=== PATIENT | female | born 1980 | race Caucasian/White ===

== ENCOUNTER 2017-10-17 11:11 | Outpatient (CLI) | payer BC ==
[~2017-10-17] VITALS: Ht 165.1 cm; Wt 94.1 kg
[2017-10-17 10:25] VITALS: TEMP 97.9
[2017-10-17] MEDS ORDERED: PRENATAL MVI PO (11:42)
[2017-10-17 11:45] VITALS: BP 155/99; PULSE 71
[2017-10-17 12:15] VITALS: BP 145/98; PULSE 71
[2017-10-17 12:44] LABS: HEMATOCRIT 40.5 % (37.0-47.0); HEMOGLOBIN 13.5 g/dl (12.5-16.0); MEAN CELL VOLUME 94 fl (80.0-100.0); MEAN CORPUSCULAR HEMOGLOBIN 31 pg (27.0-31.0); MEAN CORPUSCULAR HGB CONC 33 g/dl (33.0-37.0); MEAN PLATELET VOLUME 12.4 fl (7.4-10.4); PLATELET COUNT 151 K/mm3 (130-400); RED BLOOD COUNT 4.32 M/mm3 (4.10-5.30); REDCELL DISTRIBUTION WIDTH-CV 13.2 % (11.5-14.5)
[2017-10-17 12:45] VITALS: BP 155/86; PULSE 113
[2017-10-17 12:52] LABS: ALBUMIN 3.2 gm/dL (3.5-5.0); BILIRUBIN,TOTAL 0.3 mg/dL (0.0-1.0); CALCIUM 8.8 mg/dL (8.4-10.2); CREATININE, serum 0.88 mg/dL (0.52-1.25); POTASSIUM 3.3 mmol/L (3.4-5.0); TOTAL PROTEIN 6.9 gm/dL (6.4-8.2)
[2017-10-17 12:58] LABS: COLLECTION METHOD CLEAN CATCH
[2017-10-17 13:05] LABS: PH 6 (5-8); SQUAMOUS EPITHELIAL 0-2 /hpf; URINE APPEARANCE Clear; URINE BACTERIA None Seen /hpf; URINE BILIRUBIN Negative (NEGATIVE); URINE BLOOD Negative (NEGATIVE); URINE COLOR Straw; URINE GLUCOSE Negative (NEGATIVE); URINE KETONE Negative (NEGATIVE); URINE LEUKOCYTE ESTERASE Negative (NEGATIVE); URINE NITRATE Negative (NEGATIVE); URINE PROTEIN(semi-quant) Negative (NEGATIVE); URINE RBC 0-2 /hpf; URINE UROBILINOGEN Negative (NEGATIVE); URINE WBC 0-2 /hpf
[2017-10-17 13:15] VITALS: BP 145/85; PULSE 78
== END 2017-10-17 13:45 | disposition home or self-care (01) ==
LOC: LDRO 11:11
PROVIDERS: Obstetrics & Gynecology
DX: O32.1XX0 Maternal care for breech presentation, not applicable or unspecified (principal); Z3A.37 37 weeks gestation of pregnancy
CPT/HCPCS: J3105

== ENCOUNTER 2017-10-21 17:26 | Inpatient (IN) | payer BC ==
[~2017-10-21] VITALS: Ht 165.1 cm; Wt 95.5 kg
[2017-10-21] VITALS (24 sets, daily range): BP systolic 134–194; BP diastolic 70–99; PULSE 63–88; TEMP 97.3–98.4
[~2017-10-21 17:26] MED LIST: PRENATAL MVI PO
[2017-10-21 18:47] LABS: COLLECTION METHOD CLEAN CATCH
[2017-10-21 18:50] LABS: BASO % 0.2 % (0.0-2.0); EOS # 0.1 (0.0-0.7); EOS % 1.1 % (0-4.0); GRAN % 73.6 % (42.2-75.2); HEMATOCRIT 40.2 % (37.0-47.0); HEMOGLOBIN 13.7 g/dl (12.5-16.0); LYMPH # 1.8 (1.2-3.4); LYMPH % 14.7 % (20.0-51.0); MEAN CELL VOLUME 92 fl (80.0-100.0); MEAN CORPUSCULAR HEMOGLOBIN 31 pg (27.0-31.0); MEAN CORPUSCULAR HGB CONC 34 g/dl (33.0-37.0); MEAN PLATELET VOLUME 12.5 fl (7.4-10.4); MONO # 1.2 (0.1-0.6); MONO % 10.1 % (1.7-9.3); PLATELET COUNT 155 K/mm3 (130-400); RED BLOOD COUNT 4.37 M/mm3 (4.10-5.30); REDCELL DISTRIBUTION WIDTH-CV 13.1 % (11.5-14.5)
[2017-10-21 18:53] LABS: MUCOUS Present /lpf; PH 5 (5-8); SQUAMOUS EPITHELIAL None Seen /hpf; URINE APPEARANCE Clear; URINE BACTERIA None Seen /hpf; URINE BILIRUBIN Negative (NEGATIVE); URINE BLOOD Negative (NEGATIVE); URINE COLOR Straw; URINE GLUCOSE Negative (NEGATIVE); URINE KETONE Negative (NEGATIVE); URINE LEUKOCYTE ESTERASE Negative (NEGATIVE); URINE NITRATE Negative (NEGATIVE); URINE PROTEIN(semi-quant) Negative (NEGATIVE); URINE RBC 0-2 /hpf; URINE UROBILINOGEN Negative (NEGATIVE); URINE WBC 0-2 /hpf
[2017-10-21 18:58] LABS: ALBUMIN 3.3 gm/dL (3.5-5.0); BILIRUBIN,TOTAL 0.3 mg/dL (0.0-1.0); CALCIUM 9.6 mg/dL (8.4-10.2); CREATININE, serum 0.97 mg/dL (0.52-1.25); POTASSIUM 4.1 mmol/L (3.4-5.0); TOTAL PROTEIN 7.5 gm/dL (6.4-8.2)
[2017-10-22] VITALS (30 sets, daily range): BP systolic 108–154; BP diastolic 62–99; PULSE 58–106; TEMP 97.5–98.4
[2017-10-23 01:30] VITALS: BP 113/66; PULSE 61; TEMP 97.7
[2017-10-23 06:56] LABS: HEMATOCRIT 31.2 % (37.0-47.0); HEMOGLOBIN 10.3 g/dl (12.5-16.0)
[2017-10-23 07:20] VITALS: BP 149/88; PULSE 62; TEMP 98.3
[2017-10-23 16:00] VITALS: BP 140/89; PULSE 85; TEMP 98.1
[2017-10-23 20:21] VITALS: BP 131/77; PULSE 77; TEMP 97.8
[2017-10-24 07:45] VITALS: BP 148/82; PULSE 67; TEMP 98.2
[2017-10-24 17:30] VITALS: BP 152/87; PULSE 73; TEMP 98.1
[2017-10-24 20:30] VITALS: BP 145/91; PULSE 83; TEMP 98.4
[2017-10-25 07:15] VITALS: BP 154/92; PULSE 70; TEMP 97.9
[2017-10-25] MEDS ORDERED: IBU800 M1 PO (08:45)
[2017-10-25] MEDS ORDERED: PROCARDIA XL 3030 MG PO (08:45)
[2017-10-25] MEDS ORDERED: PERCOCET 325 MG1 TA2 PO (08:45)
[2017-10-25 12:54] VITALS: BP 136/96; PULSE 70
== END 2017-10-25 15:30 | disposition home or self-care (01) | DRG 766 ==
LOC: LDRO 17:26 → LDR 17:30 → OB 10-22 04:00
PROVIDERS: Obstetrics & Gynecology
PROC: 10D00Z1 Extraction of Products of Conception, Low, Open Approach (ICD-10-PCS; principal; 2017-10-22)
DX: O76 Abnormality in fetal heart rate and rhythm complicating labor and delivery (principal); O13.4 Gestational [pregnancy-induced] hypertension without significant proteinuria, complicating childbirth; Z37.0 Single live birth; Z3A.38 38 weeks gestation of pregnancy
CPT/HCPCS: J0171; J0690; J1885; J2270; J2370; J2400; J2405; J2590; J7120

== ENCOUNTER 2022-02-10 06:10 | Inpatient (IN) | payer OTHER ==
[2022-02-10] VITALS (16 sets, daily range): BP systolic 115–176; BP diastolic 56–93; PULSE 68–106; TEMP 97.8–98.8
[~2022-02-10] VITALS: Ht 165.1 cm; Wt 105.5 kg
[~2022-02-10 06:10] MED LIST changes: +IBU800 M1 PO; +PERCOCET 325 MG1 TA2 PO; +PROCARDIA XL 3030 MG PO
--- NOTE | 2022-02-10 09:59 | NUR ---
0835-PT PRESENTS TO L&D UNIT IN STABLE CONDITION. PT ACCOMPANIED BY SPOUSE, SUGEY. PT AMBULATED TO ROOM 217. PT PLACED CLEAN GOWN ON AND MONIORS PLACED BY RN. PT DENIES CONTRACTIONS, DECREASED FM, VAGINAL BLEEDING, AND LEAKING OF FLUID. VS WNL. CATEGORY 1 STRIP. PROVIDER NOTIFIED OF ARRIVAL. CARE PLAN UPDATED.
[2022-02-10 10:08] LABS: BASO % 0.2 % (0.0-2.0); EOS # 0.1 K/mm3 (0.0-0.7); EOS % 1.1 % (0.0-4.0); GRAN # 9.2 K/mm3 (1.4-6.5); GRAN % 75.5 % (42.2-75.2); HEMATOCRIT 37.5 % (37.0-47.0); HEMOGLOBIN 12.8 g/dl (12.5-16.0); LYMPH # 1.7 K/mm3 (1.2-3.4); LYMPH % 14.3 % (20.0-51.0); MEAN CELL VOLUME 91 fl (80.0-100.0); MEAN CORPUSCULAR HEMOGLOBIN 31 pg (27-31); MEAN CORPUSCULAR HGB CONC 34 g/dl (33.0-37.0); MEAN PLATELET VOLUME 13.6 fl (7.4-10.4); MONO % 8.2 % (1.7-9.3); PLATELET COUNT 137 K/mm3 (130-400); RED BLOOD COUNT 4.14 M/mm3 (4.10-5.30); REDCELL DISTRIBUTION WIDTH-CV 13.4 % (11.5-14.5)
--- NOTE | 2022-02-10 14:43 | NUR ---
NEAL REPORT GIVEN TO RACHEL HUNG. PT STABLE AT THIS TIME. CARE TO CONTINUE.
[2022-02-11 03:48] VITALS: BP 122/72; PULSE 78; TEMP 97.8
[2022-02-11 07:31] VITALS: BP 120/75; PULSE 84; TEMP 97.6
[2022-02-11] MEDS ORDERED: ROXICODONE 55 MG/TAB PO (10:07)
[2022-02-11] MEDS ORDERED: IBU800 M1 PO (10:07)
--- NOTE | 2022-02-11 14:03 | NUR ---
Patient Scheduler rounds: Patient and were in room. Patient had a so will have a longer hospital stay. The couple has another son who is four years old. [place] for baby Senth[place]. The couple expressed appreciation for the blessing.
[2022-02-11 16:12] VITALS: BP 122/93; PULSE 98; TEMP 98.3
[2022-02-11 20:15] VITALS: BP 144/72; PULSE 80; TEMP 97.8
[2022-02-12 05:13] VITALS: BP 126/72; PULSE 76; TEMP 98
[2022-02-12 09:23] VITALS: BP 145/75; PULSE 88; TEMP 98.5
[2022-02-12] MEDS ORDERED: NEWMANS TOP (11:52)
[2022-02-12 17:11] VITALS: BP 145/90; PULSE 88; TEMP 98.3
[2022-02-12 20:40] VITALS: BP 147/81; PULSE 74; TEMP 97.6
[2022-02-13 07:19] VITALS: BP 152/85; PULSE 68; TEMP 97.7
== END 2022-02-13 16:45 | disposition home or self-care (01) | DRG 788 ==
LOC: OB 06:10
PROVIDERS: ADMIT Obstetrics & Gynecology
PROC: 10D00Z1 Extraction of Products of Conception, Low, Open Approach (ICD-10-PCS; principal; 2022-02-10)
DX: O36.5930 Maternal care for other known or suspected poor fetal growth, third trimester, not applicable or unspecified (principal); O13.5 Gestational [pregnancy-induced] hypertension without significant proteinuria, complicating the puerperium; O76 Abnormality in fetal heart rate and rhythm complicating labor and delivery; O99.213 Obesity complicating pregnancy, third trimester; O34.211 Maternal care for low transverse scar from previous cesarean delivery; Z3A.38 38 weeks gestation of pregnancy; Z37.0 Single live birth
CPT/HCPCS: J0690; J1885; J2370; J2405; J2590; J7120